=== PATIENT | male | born 1945 | race Caucasian/White ===

== ENCOUNTER 2022-09-02 09:21 | Outpatient (CLI) | payer OTHER, SELFPAY ==
--- NOTE | 2022-09-02 09:34 | XR_ITS ---
WS: [id number] EXAMINATION: XR lumbar spine f/e only [id number] REASON FOR EXAM: SPONDYLOLISTHESIS LUMBAR REGION COMPARISON: None available. ORDER DATE: 09/02/2022 10:02 AM FINDINGS/IMPRESSION: There is a prominent kyphosis at the thoracolumbar junction. Marked degenerative changes are present with large anterior syndesmophytes and prominent sclerotic change in the posterior elements at L4 thr ough S1. Irregular disc narrowing is present throughout the lumbar spine. No evidence of spondylolist hesis cannot exclude spinal or foraminal stenosis which is likely based on the hypertrophic facet alva nges apparent on these limited images.
--- NOTE | 2022-09-02 09:36 | MR_ITS ---
WS: [id number] MRI LUMBAR SPINE NONCONTRAST HISTORY: VERTEBROGENIC LOW BACK PAIN COMPARISON: None available. TECHNIQUE: Sagittal and axial multisequence imaging is submitted. Osteophytic ridging and degenerative disc disease in the cervical spine. Cervical osteophytes and dis c encroachment upon the cervical canal at C4-5, C5-6 and C6-7. Severe LEFT curvature of the lumbar spine with angulation approximately 60 degrees from normal. Disc spaces are narrowed. Asymmetric disc space narrowing due to the scoliosis and disc disease. Sunil ign hemangiomas at T9 and T12. Conus terminates normally at L1-2 disc level. T12-L1: Mild LEFT subarticular recess and proximal foraminal stenosis. L1-L2: Marked asymmetric disc bulging contacting the ventral thecal sac. Moderate facet joint arthrit is. Disc and osteophyte contacting the thecal sac and subarticular recesses. Moderate central stenosi s with subarticular recess and foraminal stenosis. There is most significant contact on the RIGHT lat eral thecal sac. L2-L3: Diffuse annular disc bulging with bilateral facet joint arthritis. RIGHT facet joint arthropat hy contacts the RIGHT lateral thecal sac and the nerve roots. Mild central stenosis. Advanced bilater al foraminal stenosis but much greater on the RIGHT and also involving the subarticular recess. L3-L4: Severe scoliosis resulting in deformity of the thecal sac. Severe RIGHT foraminal subarticular recess stenosis. Moderate on the LEFT. Herniation of the thecal sac into the RIGHT lateral recess. L4-L5: Diffuse annular disc bulging with a central disc protrusion. Bilateral facet arthritis, RIGHT greater than LEFT. Severe bilateral foraminal and subarticular recess stenosis and moderate central s tenosis. L5-S1: Diffuse annular disc bulging with osteophytic ridging and facet arthritis. Disc encroachment u patricia the subarticular recesses. Moderate central, bilateral subarticular recess and severe bilateral f oraminal stenosis, LEFT greater than RIGHT. Atherosclerosis aorta. MR/MR lumbar spine wo con* [id number] IMPRESSION: 1. Severe LEFT lumbar scoliosis. 2. Multilevel areas of central and foraminal stenoses with asymmetric disc spa ce narrowing. 3. L3-4: Severe RIGHT foraminal and subarticular recess stenosis with moderat e stenosis on the LEFT. 4. L4-5: Severe bilateral foraminal and subarticular recess stenosis with mode rate central stenosis. 5. L5-S1: Severe bilateral foraminal stenosis, LEFT greater than RIGHT with mo derate central and bilateral subarticular recess stenosis. 6. L1-2: Moderate central stenosis with subarticular recess and foraminal sten osis most significantly contacting the RIGHT lateral thecal sac. 7. L2-3: Severe bilateral foraminal stenosis greatest on the RIGHT with involv ement of the subarticular recesses and mild central stenosis.
== END 2022-09-02 09:22 | disposition home or self-care (01) ==
LOC: RAD 09:24
PROVIDERS: Visit Provider Nurse Practitioner
DX: M41.9 Scoliosis, unspecified (principal); M48.07 Spinal stenosis, lumbosacral region; M40.205 Unspecified kyphosis, thoracolumbar region; M43.16 Spondylolisthesis, lumbar region
CPT/HCPCS: 72120; 72148

== ENCOUNTER → 2023-09-19 13:51 | Outpatient (BNVA) | payer OTHER, SELFPAY | PROVIDERS: PCP Family Medicine; Referring Provider Family Medicine; Visit Provider Orthopaedic Surgery | DX: M54.50 Low back pain, unspecified (principal); G89.29 Other chronic pain | CPT/HCPCS: 36415; 72110; 80053; 81003; 81015; 85025; 99204 ==

== ENCOUNTER → 2023-10-06 11:59 | Outpatient (BNVA) | payer OTHER, SELFPAY | PROVIDERS: PCP Family Medicine; Visit Provider Family Medicine | DX: Z01.818 Encounter for other preprocedural examination (principal); R00.1 Bradycardia, unspecified | CPT/HCPCS: 93005 ==

== ENCOUNTER 2023-10-13 07:01 | Day surgery (SDC) | payer OTHER, SELFPAY ==
[2023-10-13] VITALS (11 sets, daily range): BP systolic 101–131; BP diastolic 56–80; PULSE 53–90; RESP 17–19; TEMP 36.2–36.4; O2SAT 96–100
[2023-10-13] MEDS: sodium chloride 0.9% 1,000 ML 30 ML IV (07:27)
--- NOTE | 2023-10-13 07:37 | ANES.PREANE2 ---
Pre-Anesthetic Assessment Height/Weight: Height 5 ft 10 in Weight 175 lb Temp Pulse Resp BP Pulse Ox O2 Del Method 97.5 F L 56 L 18 131/80 100 Room Air 10/13/23 07:20 10/13/23 07:20 10/13/23 07:20 10/13/23 07:20 10/13/23 07:20 10/13/23 07:20 Preop Diagnosis: Lumbar stenosis with neurogenic claudication Operation Date: 10/13/23 08:45 Proposed Procedures p Neurostimulator Placement(Not Applicable) - Matt Bob DO s Paddle Electrode Placement(Not Applicable) - Matt Bob DO Last intake: Intake Last Liquid Date 10/12/23 Last Liquid Time 21:00 Last Solid Date 10/12/23 Last Solid Time 20:00 Anesthetic Plan ASA status: 3 Anesthesia: General Other: No prior issues with anesthesia NPO since midnight Hypertension on lisinopril Hypothyroidism on Synthroid Labs 09/19/2023 reviewed acceptable for procedure Recent EKG showing sinus bradycardia Plan for GA Medications/Allergies Home Medications Medication Instructions Recorded Confirmed Last Taken Type diclofenac potassium 50 mg tablet 50 mg PO BID 09/19/23 10/12/23 10/12/23 History levothyroxine 50 mcg capsule 50 mcg PO DAILY 09/19/23 10/12/23 10/12/23 History lisinopril 10 mg tablet 10 mg PO DAILY 09/19/23 10/12/23 10/12/23 History pravastatin 40 mg tablet 40 mg PO DAILY 09/19/23 10/12/23 10/12/23 History tamsulosin 0.4 mg capsule 0.4 mg PO DAILY 09/19/23 10/12/23 10/12/23 History hydrocodone 5 mg-acetaminophen 325 1 - 2 tab PO .Q4-6H #40 tabs 10/13/23 Unknown Rx mg tablet Allergies Allergy/AdvReac Type Severity Reaction Status Date / Time iodine Allergy ALGY-Anaphy Verified 10/12/23 14:04 laxis Current Medications Generic Name Dose Route Start Last Admin Trade Name Freq PRN Reason Stop Dose Admin Sodium Chloride 1,000 mls @ 30 mls/hr 10/13/23 07:15 10/13/23 07:27 Sodium Chloride 0.9% IV 10/14/23 07:14 30 mls/hr .Q24H DEBRA Administration PFSH Anesthesia Social History Smoking and tobacco/nicotine status: never used tobacco/nicotine Data Anesthesia Cardiac Studies: No Data to Display
--- NOTE | 2023-10-13 08:41 | W.PM.OPSUD ---
Surgery/Procedure H&P Update DATE OF PROCEDURE: October 13, 2023 DATE H&P PERFORMED: 10/05/22 H&P UPDATE INFORMATION: I have reviewed H&P completed within last 30 days, I have examined patient prior to procedure and No changes to prior documentation PREOP DIAGNOSIS: Lumbar stenosis with neurogenic claudication PLANNED PROCEDURE: Operation Date: 10/13/23 08:45 Proposed Procedures p Neurostimulator Placement(Not Applicable) - Matt Bob DO s Paddle Electrode Placement(Not Applicable) - Matt Bob DO
[2023-10-13] MEDS: ceFAZolin 2,000 mg SDV 2000 MG IVP (09:16)
[2023-10-13] MEDS: lidocaine-epi 1% 20 mL INJ INJECTION (10:21)
[2023-10-13] MEDS: vancomycin 1,000 MG SDV 1000 MG XX (10:22)
--- NOTE | 2023-10-13 10:41 | PM.OP ---
Operative Report Date of procedure: October 13, 2023 Pre-op diagnosis: Degenerative scoliosis Lumbar stenosis neurogenic claudication Post-op diagnosis: same Procedure done: 1. Neurostimulator placement 2. Neurostimulator battery placement Surgeon: Matt Bob DO Estimated blood loss (mL): 5 Procedure: 1. Neurostimulator placement 2. Neurostimulator battery placement Patient brought the op suite after undergoing anesthesia was placed in the prone position. All his impingement well-padded. Patient's prepped immunosuppression. Attention was first brought to the placement of the neurostimulator. The skin incision was made over the T8-9 level. The subperiosteal dissection was made out to the transverse processes bilaterally. Retractors were placed. This again confirmed under C-arm guidance. Interlaminar ligament paraspinous process of T8 was taken down. Then the ligamentum flavum was taken down using curved curette and Kerrison. The trial probe was then placed first followed by placement of the paddle. Once the paddle was placed is confirmed to be in the correct position under C-arm guidance. The wires were then sutured in the place on the spinous process of T9. Attention was then brought to placement the battery. Skin incision made Bovie is used to help make a pocket for the battery. Once this is completed then a wire passer was placed up through the pocket into the location of the paddle. Wires were then passed subcutaneously they are placed into the battery battery was confirmed to be working. The battery was then placed into the pouch and then wounds were closed in layered fashion with 0 Vicryl 2-0 Vicryl and Monocryl suture. Sterile dressings were applied and patient was transferred to the PACU in stable condition.
--- NOTE | 2023-10-13 12:07 | ANE.PACU2 ---
Inpatient post-anesthesia follow up: Airway intact: Yes Vital signs: Temperature 97.2 F Pulse Rate 58 Respiratory Rate 18 Blood Pressure 104/59 Pulse Oximetry 97 Oxygen Delivery Me thod Room Air Oxygen Flow Rate 6 Fraction of Inspir ed Oxygen Hydration adequate: Yes Nausea and vomiting: No Pain level: 1 Mental status: Baseline
--- NOTE | 2023-10-13 12:58 | XR_ITS ---
WS: [id number] Examination: XR thoracic spine 2V [id number] Reason for Exam: or pic, stimulator for spine Date: 10/13/2023 Comparison: None. Findings: 2 intraoperative images were obtained with 37 seconds of fluoroscopy. The dap is 8.83 mGy. Intraoperative images demonstrate placement of thoracic spinal stimulator wires which lie over the mi d thoracic spine Please see intraoperative note for full explanation of findings and the procedure.
== END 2023-10-13 12:08 | disposition home or self-care (01) ==
PROVIDERS: PCP Family Medicine; Visit Provider Orthopaedic Surgery
PROC: (CPT 63685; principal; 2023-10-13 08:35)
PROC: (CPT 63664; 2023-10-13 08:35)
DX: M48.062 Spinal stenosis, lumbar region with neurogenic claudication (principal)
CPT/HCPCS: 63655; 63685; 72070; 76000; C1778; C1820; J0131; J0690; J1100; J2371; J2405; J2704; J3010; J3370; J3490; J7030

== ENCOUNTER → 2023-10-24 10:33 | Outpatient (BNVA) | payer OTHER, SELFPAY | PROVIDERS: PCP Family Medicine; Visit Provider Orthopaedic Surgery | DX: Z48.89 Encounter for other specified surgical aftercare (principal) | CPT/HCPCS: 99024 ==

== ENCOUNTER → 2023-11-21 10:21 | Outpatient (BNVA) | payer OTHER, SELFPAY | PROVIDERS: PCP Family Medicine; Visit Provider Orthopaedic Surgery | DX: Z48.89 Encounter for other specified surgical aftercare (principal) | CPT/HCPCS: 99024 ==

== ENCOUNTER → 2023-12-26 10:23 | Outpatient (BNVA) | payer OTHER, SELFPAY | PROVIDERS: PCP Family Medicine; Visit Provider Orthopaedic Surgery | DX: Z48.89 Encounter for other specified surgical aftercare (principal) | CPT/HCPCS: 99024 ==